=== PATIENT | female | born 1940 | race Caucasian/White ===

== ENCOUNTER 2018-05-25 16:39 | Emergency (ER) | payer MEDICARE, MEDICAID ==
[~2018-05-25] VITALS: Ht 154.9 cm; Wt 76.0 kg
[2018-05-25 21:10] LABS: HEMATOCRIT. 31.4 % (36.0-48.0); HEMOGLOBIN. 10.3 g/dL (12.0-16.0); MEAN CORPUSCULAR HEMOGLOBIN 27.6 pg (28.0-32.0); MEAN PLATELET VOLUME 7.7 fl (7.4-10.4); PLATELET 285 x1000/uL (130-400); RED BLOOD CELL COUNT 3.74 mill/uL (4.2-5.4); RED CELL DISTRIBUTION WIDTH 16.1 % (11.6-14.6)
[2018-05-25 21:15] LABS: CHLORIDE 105 mEq/L (98-107)
[2018-05-25 22:11] VITALS: BP 110/49
[2018-05-25 22:13] LABS: PLATELET ESTIMATE NORMAL
== END 2018-05-25 22:44 | disposition home or self-care (01) ==
LOC: ER 16:39
DX: R05 Cough (principal); J45.909 Unspecified asthma, uncomplicated; E11.9 Type 2 diabetes mellitus without complications; I10 Essential (primary) hypertension; E05.90 Thyrotoxicosis, unspecified without thyrotoxic crisis or storm; I25.2 Old myocardial infarction; Z95.0 Presence of cardiac pacemaker; Z88.0 Allergy status to penicillin; Z88.2 Allergy status to sulfonamides; Z98.890 Other specified postprocedural states
CPT/HCPCS: 36415; 71045; 80053; 82962; 85025; 87040; 99285

== ENCOUNTER 2018-11-03 15:20 | Emergency (ER) | payer MEDICARE, MEDICAID ==
[~2018-11-03] VITALS: Ht 157.5 cm; Wt 71.0 kg
[2018-11-03] MEDS ORDERED: ACETAMINOPHEN 325MG TABLET PO ONE (19:45)
[2018-11-03 21:20] VITALS: BP 107/53
== END 2018-11-03 21:22 | disposition home or self-care (01) ==
LOC: ER 15:50
DX: S93.692A Other sprain of left foot, initial encounter (principal); E11.9 Type 2 diabetes mellitus without complications; E78.00 Pure hypercholesterolemia, unspecified; I10 Essential (primary) hypertension; E03.9 Hypothyroidism, unspecified; W01.0XXA Fall on same level from slipping, tripping and stumbling without subsequent striking against object, initial encounter; Y93.89 Activity, other specified; Y92.89 Other specified places as the place of occurrence of the external cause; Y99.8 Other external cause status; Z95.0 Presence of cardiac pacemaker; Z98.890 Other specified postprocedural states; Z88.0 Allergy status to penicillin; Z88.2 Allergy status to sulfonamides
CPT/HCPCS: 73590; 73610; 73630; 99283

== ENCOUNTER → 2020-04-14 | Outpatient (CLI) | payer MEDICARE, MEDICAID | END | disposition home or self-care (01) | LOC: CT 11:54 | PROVIDERS: ATTEND Internal Medicine Rheumatology | DX: M43.16 Spondylolisthesis, lumbar region (principal); M47.816 Spondylosis without myelopathy or radiculopathy, lumbar region; M48.061 Spinal stenosis, lumbar region without neurogenic claudication; I70.90 Unspecified atherosclerosis; M25.78 Osteophyte, vertebrae | CPT/HCPCS: 72131 ==

== ENCOUNTER 2022-11-17 14:52 | Emergency (ER) | payer MEDICARE, MEDICAID ==
[~2022-11-17] VITALS: Ht 160 cm; Wt 50.0 kg
[2022-11-17] MEDS ORDERED: FAMOTIDINE 20MG/2ML VIAL IV ONE (15:45)
[2022-11-17] MEDS ORDERED: ONDANSETRON HCL 4MG/2ML INJ IV ONE (15:45)
[2022-11-17] MEDS ORDERED: SODIUM CHLORIDE 0.9% 1,000 ML IV ONE ×2 (15:45→18:15)
[2022-11-17] MEDS ORDERED: KETOROLAC 15MG/ML VIAL IV ONE (16:00)
[2022-11-17 16:05] LABS: HEMATOCRIT. 30.1 % (36.0-48.0); HEMOGLOBIN. 9.1 g/dL (12.0-16.0); MEAN CORPUSCULAR HEMOGLOBIN 23.7 pg (28.0-32.0); MEAN CORPUSCULAR VOLUME 78.2 fL (81.0-99.0); MEAN PLATELET VOLUME 8.2 fl (7.4-10.4); PLATELET 285 x1000/uL (130-400); RED BLOOD CELL COUNT 3.86 mill/uL (4.2-5.4); RED CELL DISTRIBUTION WIDTH 18.6 % (11.6-14.6)
[2022-11-17 16:09] LABS: INR 1.2
[2022-11-17 16:27] LABS: CHLORIDE 110 mEq/L (98-107)
[2022-11-17 16:31] LABS: CLARITY URINE CLEAR (CLEAR); COLOR URINE YELLOW (YELLOW); KETONES URINE NEGATIVE (NEGATIVE); LEUKOCYTE ESTERASE URINE TRACE (NEGATIVE); NITRITE URINE NEGATIVE (NEGATIVE); OCCULT BLOOD URINE NEGATIVE (NEGATIVE); PROTEIN URINE 1+ (NEGATIVE); SPECIFIC GRAVITY URINE 1.019 (1.005-1.030)
[2022-11-17 17:57] LABS: PLATELET ESTIMATE NORMAL
[2022-11-17 20:00] VITALS: BP 107/53
== END 2022-11-17 21:22 | disposition home or self-care (01) ==
LOC: ER 14:52
DX: K52.9 Noninfective gastroenteritis and colitis, unspecified (principal); E11.9 Type 2 diabetes mellitus without complications; E78.00 Pure hypercholesterolemia, unspecified; I10 Essential (primary) hypertension; Z95.0 Presence of cardiac pacemaker; Z88.0 Allergy status to penicillin
CPT/HCPCS: 36415; 74176; 80053; 81003; 83605; 83690; 84484; 85025; 85610; 96374; 96375; 99285; J1885; J2405; J3490; J7030

== ENCOUNTER 2023-09-03 16:39 | Emergency (ER) | payer MEDICARE, MEDICAID ==
[~2023-09-03] VITALS: Ht 160 cm; Wt 87.0 kg
[~2023-09-03 16:39] MED LIST: AMI2 PO; ATOR40TA70 PO; CARV6.2548 PO; CELL2 PO; ISOS30TA91 PO; LEVO100T9 PO; PANT40TA51 PO; PRED5TAB48 PO; RIVA20TA PO
[2023-09-03 16:48] VITALS: BP 145/62; PULSE 75; RESP 20; TEMP 98.8; O2SAT 96
[2023-09-03] MEDS ORDERED: ACETAMINOPHEN 325MG TABLET PO ONE (17:45)
[2023-09-03 18:49] LABS: ALANINE AMINOTRANSFERASE 31 IU/L (10-49); ALBUMIN 3.7 g/dL (3.2-4.8); ASPARTATE AMINOTRANSFERASE 43 IU/L (<34); BILIRUBIN TOTAL 0.9 mg/dL (0.1-1.0); CALCIUM 8.6 mg/dL (8.7-10.4); CARBON DIOXIDE 24 mEq/L (21-32); CHLORIDE 102 mEq/L (98-107); CREATININE 1.2 mg/dL (0.6-1.0); GLUCOSE 160 mg/dL (70-105); POTASSIUM 4.2 mEq/L (3.5-5.1); PROTEIN TOTAL 6.9 g/dL (6.0-8.3); SODIUM 135 mEq/L (136-145); UREA NITROGEN BLOOD 45 mg/dL (9-23)
[2023-09-03 19:15] LABS: BASOPHILS % 0.1 % (0.0-2.0); DIFFERENTIAL COMMENT 0; HEMATOCRIT. 29.1 % (36.0-48.0); LYMPHOCYTES % 7.1 % (20.0-50.0); MEAN CORPUSCULAR HEMOGLOBIN 24.9 pg (28.0-32.0); MEAN CORPUSCULAR VOLUME 80.4 fL (81.0-99.0); MEAN PLATELET VOLUME 7.3 fl (7.4-10.4); MONOCYTES % 8.4 % (2.0-8.0); NEUTROPHILS % 84.4 % (40.0-76.0); PLATELET 263 x1000/uL (130-400); RED BLOOD CELL COUNT 3.62 mill/uL (4.2-5.4); RED CELL DISTRIBUTION WIDTH 19.3 % (11.6-14.6); WHITE BLOOD COUNT 7.4 x1000/uL (4.5-11.0)
[2023-09-03] MEDS ORDERED: CLIN-116 MT (21:45)
[2023-09-03] MEDS ORDERED: CLIN-194 MT (21:45)
[2023-09-03] MEDS ORDERED: IOHEXOL-300 100 ML BOTTLE ONE (22:17)
== END 2023-09-03 22:34 | disposition home or self-care (01) ==
LOC: ER 16:39
DX: K11.20 Sialoadenitis, unspecified (principal); E11.9 Type 2 diabetes mellitus without complications; E78.00 Pure hypercholesterolemia, unspecified; I10 Essential (primary) hypertension; E03.9 Hypothyroidism, unspecified; Z79.899 Other long term (current) drug therapy
CPT/HCPCS: 99285; 70491; 80053; 85025; 36415; Q9967

== ENCOUNTER 2023-10-21 10:06 | Inpatient (IN) | payer MEDICARE, MEDICAID ==
[~2023-10-21] VITALS: Ht 134.6 cm; Wt 67.1 kg
[~2023-10-21 10:06] MED LIST changes: -CELL2 PO; +CHOL50003 PO; +CLIN-194 MT; +FURO40TA5 PO; +INSU100I22 SUBCUT; -ISOS30TA91 PO; +ISOS60TA76 PO; +ONDA4TAB50 PO; -PRED5TAB48 PO; +TRAZ-251 PO
[2023-10-21 10:58] LABS: BASOPHILS % 0.2 % (0.0-2.0); DIFFERENTIAL COMMENT 0; EOSINOPHILS % 0.1 % (0.0-5.0); HEMATOCRIT. 28.1 % (36.0-48.0); HEMOGLOBIN. 8.7 g/dL (12.0-16.0); LYMPHOCYTES % 14.8 % (20.0-50.0); MEAN CORPUSCULAR HEMOGLOBIN 26.5 pg (28.0-32.0); MEAN CORPUSCULAR HGB CONC 30.8 g/dL (31.0-37.0); MEAN PLATELET VOLUME 7.2 fl (7.4-10.4); MONOCYTES % 13.3 % (2.0-8.0); NEUTROPHILS % 71.6 % (40.0-76.0); PLATELET 243 x1000/uL (130-400); RED BLOOD CELL COUNT 3.27 mill/uL (4.2-5.4); RED CELL DISTRIBUTION WIDTH 19.3 % (11.6-14.6)
[2023-10-21 11:15] LABS: ALANINE AMINOTRANSFERASE 10 IU/L (10-49); ALBUMIN 3.8 g/dL (3.2-4.8); ASPARTATE AMINOTRANSFERASE 23 IU/L (<34); BILIRUBIN TOTAL 1.4 mg/dL (0.1-1.0); CALCIUM 8.3 mg/dL (8.7-10.4); CARBON DIOXIDE 19 mEq/L (21-32); CHLORIDE 109 mEq/L (98-107); CREATININE 1.8 mg/dL (0.6-1.0); GLUCOSE 124 mg/dL (70-105); POTASSIUM 4.2 mEq/L (3.5-5.1); SODIUM 136 mEq/L (136-145); TROPONIN I HIGH SENSITIVITY 13 ng/L (3.0-34); UREA NITROGEN BLOOD 45 mg/dL (9-23)
[2023-10-21 13:06] LABS: TROPONIN I HIGH SENSITIVITY 16 ng/L (3.0-34)
[2023-10-21] MEDS: LEVOFLOXACIN 500MG PREMIX 100 ML IV ONE (13:11)
[2023-10-21 13:33] LABS: BG CARBOXYHEMOGLOBIN 0.4 % (0.5-1.5); BG DEOXYHEMOGLOBIN 6.5 % (0.0-5.0); BG HCO3 ACT 18.7 mmol/L (22.0-26.0); BG METHEMOGLOBIN 0.5 % (0.0-1.5); BG OXYGEN SATURATION 93.4 % (92.0-98.5); BG OXYHEMOGLOBIN 92.6 % (94.0-97.0); BG PCO2 33.7 mmHg (35.0-45.0); BG PH 7.361 (7.350-7.450); BG PO2 71.9 mmHg (75.0-100.0); BG SAMPLE SITE RIGHT BRACHIAL; BG TOTAL HEMOGLOBIN 10.1 g/dL (12.0-18.0); BG VENT MODE MASK - NRB
[2023-10-21] MEDS ORDERED: IPRATROPIUM/ALBUTEROL 0.5-3(2.5)MG/3ML NEB HHN PRN (14:15)
[2023-10-21] MEDS ORDERED: CLONIDINE 0.1MG TABLET PO PRN (14:15)
[2023-10-21] MEDS ORDERED: AZITHROMYCIN 500 MG in DEXT 5% WATER 250 ML IV SCH (14:15)
[2023-10-21] MEDS ORDERED: DEXTROSE 50% WATER 50ML SYRINGE IV PRN (14:45)
[2023-10-21 15:12] VITALS: BP 150/61; PULSE 60; RESP 20; TEMP 97.5
[2023-10-21 16:00] VITALS: BP_SYST 150; BP_SYST 155; BP_DIAS 56; BP_DIAS 61; PULSE 60; PULSE 66; RESP 19; RESP 20; TEMP 97.5; TEMP 97.6
[2023-10-21] MEDS: ACETAMINOPHEN 500MG TABLET PO NR (16:15)
[2023-10-21] MEDS: RIVAROXABAN 15 MG TABLET PO SCH (16:15)
[2023-10-21] MEDS: METHYLPREDNISOLONE SOD SUCC 40MG/ML (ACT-O-VIAL) IV SCH (16:16)
[2023-10-21] MEDS: AZITHROMYCIN 500MG/250ML IV SCH (16:16)
[2023-10-21 17:16] LABS: IRON 24 ug/dL (50-170); TOTAL IRON BINDING CAPACITY 349 ug/dl (250-425)
[2023-10-21] MEDS: CYCLOSPORINE, MODIFIED 25MG CAPSULE PO SCH (18:00)
[2023-10-21] MEDS: INSULIN LISPRO 100 UNITS/ML SUBCUT SCH (18:00)
[2023-10-21] MEDS: BLOOD SUGAR DIAGNOSTIC STRIP TEST SCH (18:00)
[2023-10-21 20:00] VITALS: BP 122/48; PULSE 62; RESP 19; TEMP 97.4
[2023-10-21 20:30] VITALS: RESP 18
[2023-10-21 20:45] LABS: FOLIC ACID (FOLATE) SERUM > 20.00 ng/mL (>5.38); VITAMIN B12 SERUM 382 pg/mL (211-911)
[2023-10-21] MEDS: MYCOPHENOLATE MOFETIL 250MG CAPSULE PO SCH (21:06)
[2023-10-21 21:56] VITALS: PULSE 60; RESP 18; O2SAT 100
[2023-10-21] MEDS: IPRATROPIUM/ALBUTEROL 0.5-3(2.5)MG/3ML NEB HHN SCH (21:56)
[2023-10-22] VITALS (10 sets, daily range): BP systolic 114–134; BP diastolic 39–63; PULSE 59–98; RESP 16–20; TEMP 97.3–99.7; O2SAT 97–100
[2023-10-22 00:27] LABS: CREATINE KINASE MB FRACTION 1.2 ng/mL (0.5-3.6)
[2023-10-22 06:47] LABS: HEMATOCRIT. 24.2 % (36.0-48.0); HEMOGLOBIN. 7.8 g/dL (12.0-16.0); MEAN CORPUSCULAR HGB CONC 32.2 g/dL (31.0-37.0); MEAN PLATELET VOLUME 7.8 fl (7.4-10.4); PLATELET 168 x1000/uL (130-400); RED BLOOD CELL COUNT 2.88 mill/uL (4.2-5.4); RED CELL DISTRIBUTION WIDTH 18.3 % (11.6-14.6); WHITE BLOOD COUNT 4.5 x1000/uL (4.5-11.0)
[2023-10-22 06:59] LABS: CREATINE KINASE MB FRACTION 0.9 ng/mL (0.5-3.6)
[2023-10-22 07:02] LABS: DIFFERENTIAL COMMENT 1
[2023-10-22] MEDS: FUROSEMIDE 40MG/4ML VIAL IV SCH (08:29)
[2023-10-22] MEDS: PANTOPRAZOLE SODIUM 40 MG/VIAL IV SCH (08:29)
[2023-10-22] MEDS: AMIODARONE HCL 200 MG TABLET PO SCH (08:30)
[2023-10-22] MEDS: ASPIRIN 81MG EC TABLET PO SCH (08:30)
[2023-10-22 11:52] LABS: CHLORIDE 107 mEq/L (98-107); POTASSIUM 4.5 mEq/L (3.5-5.1); SODIUM 134 mEq/L (136-145)
[2023-10-22 11:53] LABS: CARBON DIOXIDE 18 mEq/L (21-32); GLUCOSE 192 mg/dL (70-105)
[2023-10-22 11:56] LABS: CALCIUM 8.2 mg/dL (8.7-10.4); CREATININE 1.9 mg/dL (0.6-1.0); PROTEIN TOTAL 6.5 g/dL (6.0-8.3); UREA NITROGEN BLOOD 49 mg/dL (9-23)
[2023-10-22 11:57] LABS: ALANINE AMINOTRANSFERASE 8 IU/L (10-49); ALBUMIN 3.5 g/dL (3.2-4.8); ASPARTATE AMINOTRANSFERASE 17 IU/L (<34); BILIRUBIN TOTAL 1.3 mg/dL (0.1-1.0)
[2023-10-22 11:58] LABS: CHOLESTEROL 95 mg/dL (<200); HDL CHOLESTEROL 22 mg/dL (>65); LDL CHOLESTEROL 51 mg/dL (5-100); THYROID STIMULATING HORMONE 0.08 uIU/mL (0.55-4.78); TRIGLYCERIDE 94 mg/dL (0-150)
[2023-10-22] MEDS: MEROPENEM 500MG/50ML IV SCH (12:00)
[2023-10-22 13:20] LABS: ANISOCYTOSIS 1+; PLATELET ESTIMATE NORMAL
[2023-10-22] MEDS ORDERED: MEROPENEM 1G/100ML 100 ML IV SCH (14:00)
[2023-10-22] MEDS: VANCOMYCIN 1G PREMIX 200 ML IV NR (14:07)
[2023-10-22] MEDS: INSULIN LISPRO 100 UNITS/ML SUBCUT SCH (17:17)
[2023-10-22] MEDS: INSULIN GLARGINE 100 UNITS/ML SUBCUT SCH (21:31)
[2023-10-23] VITALS (10 sets, daily range): BP systolic 114–140; BP diastolic 47–68; PULSE 83–107; RESP 14–20; TEMP 97.2–98.6; O2SAT 98
[2023-10-23 07:34] LABS: HEMATOCRIT 24.1 % (36.0-48.0); HEMOGLOBIN 7.8 g/dL (12.0-16.0); MEAN CORPUSCULAR HEMOGLOBIN 26.9 pg (28.0-32.0); MEAN CORPUSCULAR HGB CONC 32.5 g/dL (31.0-37.0); MEAN CORPUSCULAR VOLUME 82.8 fL (81.0-99.0); PLATELET 174 x1000/uL (130-400); RED BLOOD CELL COUNT 2.91 mill/uL (4.2-5.4); RED CELL DISTRIBUTION WIDTH 19.3 % (11.6-14.6); WHITE BLOOD COUNT 5.1 x1000/uL (4.5-11.0)
[2023-10-23 07:57] LABS: CALCIUM 8.5 mg/dL (8.7-10.4); CREATININE 1.8 mg/dL (0.6-1.0); POTASSIUM 4.1 mEq/L (3.5-5.1)
[2023-10-23] MEDS: LEVOTHYROXINE SODIUM 100MCG TABLET PO SCH (08:18)
[2023-10-23] MEDS: FERROUS SULFATE 325MG TABLET PO SCH (18:01)
[2023-10-23] MEDS: INSULIN LISPRO 100 UNITS/ML SUBCUT SCH (18:06)
[2023-10-23] MEDS: ACETAMINOPHEN 325MG TABLET PO PRN (18:39)
[2023-10-23] MEDS: VANCOMYCIN 1G PREMIX 200 ML IV SCH (18:40)
[2023-10-23] MEDS: INSULIN GLARGINE 100 UNITS/ML SUBCUT SCH (21:17)
[2023-10-23 23:07] LABS: CLARITY URINE CLEAR (CLEAR); COLOR URINE YELLOW (YELLOW); GLUCOSE URINE NEGATIVE (NEGATIVE); KETONES URINE 1+ (NEGATIVE); LEUKOCYTE ESTERASE URINE NEGATIVE (NEGATIVE); NITRITE URINE NEGATIVE (NEGATIVE); OCCULT BLOOD URINE NEGATIVE (NEGATIVE); PH URINE 6.5 (4.5-8.0); PROTEIN URINE 1+ (NEGATIVE); SPECIFIC GRAVITY URINE 1.012 (1.005-1.030); UROBILINOGEN URINE 0.2 E.U./dL (0.2-1.0)
[2023-10-23 23:20] LABS: BACTERIA URINE 4+; RBC URINE 0-2 /hpf (0-2); SQUAMOUS EPITHELIAL CELL URINE RARE /lpf (RARE/1+); WBC URINE 0-2 /hpf (0-2)
[2023-10-24] VITALS (9 sets, daily range): BP systolic 114–136; BP diastolic 49–78; PULSE 71–99; RESP 16–20; TEMP 97–98.1; O2SAT 96–98
[2023-10-24 06:35] LABS: HEMATOCRIT. 24.8 % (36.0-48.0); MEAN CORPUSCULAR HGB CONC 32.2 g/dL (31.0-37.0); MEAN CORPUSCULAR VOLUME 83.8 fL (81.0-99.0); PLATELET 201 x1000/uL (130-400); RED BLOOD CELL COUNT 2.96 mill/uL (4.2-5.4); RED CELL DISTRIBUTION WIDTH 19.6 % (11.6-14.6); WHITE BLOOD COUNT 9.1 x1000/uL (4.5-11.0)
[2023-10-24 06:53] LABS: DIFFERENTIAL COMMENT 1
[2023-10-24 07:06] LABS: CALCIUM 8.4 mg/dL (8.7-10.4); CREATININE 1.7 mg/dL (0.6-1.0)
[2023-10-24] MEDS: METHYLPREDNISOLONE SOD SUCC 40MG/ML (ACT-O-VIAL) IV SCH (08:40)
[2023-10-24] MEDS: METOLAZONE 2.5MG TABLET PO SCH (10:17)
[2023-10-24] MEDS: CITRIC ACID/SODIUM CITRATE SOLN 15ML UDC PO SCH (10:17)
[2023-10-24] MEDS: PREDNISONE 10MG TABLET PO SCH (10:17)
[2023-10-24] MEDS ORDERED: VANCOMYCIN 750MG PREMIX 150 ML IV SCH (12:00)
[2023-10-24 13:59] LABS: ANISOCYTOSIS 1+; PLATELET ESTIMATE NORMAL
[2023-10-24] MEDS ORDERED: CARVEDILOL 6.25 MG TABLET PO SCH (14:30)
[2023-10-24] MEDS: METOPROLOL TARTRATE 50MG TABLET PO SCH (15:18)
[2023-10-25] VITALS (8 sets, daily range): BP systolic 125–132; BP diastolic 53–71; PULSE 57–78; RESP 18–20; TEMP 97–97.9; O2SAT 96–100
[2023-10-25 06:25] LABS: HEMATOCRIT 25.2 % (36.0-48.0); HEMOGLOBIN 7.9 g/dL (12.0-16.0); MEAN CORPUSCULAR HEMOGLOBIN 26.2 pg (28.0-32.0); MEAN CORPUSCULAR HGB CONC 31.4 g/dL (31.0-37.0); MEAN CORPUSCULAR VOLUME 83.5 fL (81.0-99.0); PLATELET 212 x1000/uL (130-400); RED BLOOD CELL COUNT 3.01 mill/uL (4.2-5.4); RED CELL DISTRIBUTION WIDTH 19.2 % (11.6-14.6); WHITE BLOOD COUNT 6.8 x1000/uL (4.5-11.0)
[2023-10-25 06:28] LABS: CALCIUM 8.1 mg/dL (8.7-10.4); CREATININE 1.4 mg/dL (0.6-1.0)
[2023-10-25] MEDS ORDERED: FERR-63 PO (10:20)
[2023-10-25] MEDS ORDERED: NEOR25 PO (10:20)
[2023-10-25] MEDS ORDERED: PRED10TA PO (10:20)
[2023-10-25] MEDS ORDERED: METO-539 PO (10:20)
[2023-10-25] MEDS ORDERED: CITR473S PO (10:20)
[2023-10-25] MEDS ORDERED: INSU100I28 SQ (10:20)
[2023-10-25] MEDS ORDERED: CELL2 PO (10:20)
[2023-10-31 15:20] LABS: CYCLOSPORINE 82 LOW
== END 2023-10-25 16:40 | disposition home or self-care (01) | DRG 193 ==
LOC: ER 10:13 → 7WST 14:17
PROVIDERS: ADMIT Internal Medicine; ATTEND Internal Medicine
DX: J18.9 Pneumonia, unspecified organism (principal); G92.8 Other toxic encephalopathy; I50.33 Acute on chronic diastolic (congestive) heart failure; J96.01 Acute respiratory failure with hypoxia; I13.0 Hypertensive heart and chronic kidney disease with heart failure and stage 1 through stage 4 chronic kidney disease, or unspecified chronic kidney disease; N17.9 Acute kidney failure, unspecified; Z20.822 Contact with and (suspected) exposure to COVID-19; I49.5 Sick sinus syndrome; I25.10 Atherosclerotic heart disease of native coronary artery without angina pectoris; E11.22 Type 2 diabetes mellitus with diabetic chronic kidney disease; D50.9 Iron deficiency anemia, unspecified; N18.30 Chronic kidney disease, stage 3 unspecified; I27.21 Secondary pulmonary arterial hypertension; I48.0 Paroxysmal atrial fibrillation; E03.9 Hypothyroidism, unspecified; G89.29 Other chronic pain; J45.909 Unspecified asthma, uncomplicated; Z79.01 Long term (current) use of anticoagulants; Z79.4 Long term (current) use of insulin; Z79.82 Long term (current) use of aspirin; Z79.899 Other long term (current) drug therapy; Z82.49 Family history of ischemic heart disease and other diseases of the circulatory system; Z88.0 Allergy status to penicillin; Z88.2 Allergy status to sulfonamides; Z95.0 Presence of cardiac pacemaker; Z95.5 Presence of coronary angioplasty implant and graft
CPT/HCPCS: 36415; 36600; 71045; 74176; 80048; 80053; 80061; 80158; 80202; 81003; 82375; 82550; 82553; 82607; 82728; 82746; 82805; 82962; 83036; 83540; 83550; 83605; 83735; 83880; 84145; 84443; 84481; 84484; 85025; 85027; 85379; 86644; 87426; 93005; 93306; 93970; 94640; 97110; 97162; 97166; 97530; 99291; C1893; C9113; J0456; J1815; J1940; J1956; J2185; J2920; J3370; J7512; J7515; J7517

== ENCOUNTER 2023-12-02 12:36 | Inpatient (IN) | payer MEDICARE, MEDICAID ==
[~2023-12-02] VITALS: Ht 165.1 cm; Wt 63.0 kg
[~2023-12-02 12:36] MED LIST changes: +CELL2 PO; +CITR473S PO; -CLIN-194 MT; +FERR-63 PO; +INSU100I28 SQ; +NEOR25 PO; +PRED10TA PO; -TRAZ-251 PO
[2023-12-02] MEDS: NITROGLYCERIN OINT 1GM/INCH UDPKT TD ONE (13:39)
[2023-12-02] MEDS: FUROSEMIDE 40MG/4ML VIAL IV ONE (13:39)
[2023-12-02] MEDS: ASPIRIN 81MG TABLET PO ONE (13:39)
[2023-12-02 14:15] LABS: BASOPHILS % 0.2 % (0.0-2.0); HEMATOCRIT. 31.4 % (36.0-48.0); HEMOGLOBIN. 9.8 g/dL (12.0-16.0); LYMPHOCYTES % 13.1 % (20.0-50.0); MEAN CORPUSCULAR HEMOGLOBIN 26.9 pg (28.0-32.0); MEAN CORPUSCULAR HGB CONC 31.4 g/dL (31.0-37.0); MEAN CORPUSCULAR VOLUME 85.7 fL (81.0-99.0); MEAN PLATELET VOLUME 7.6 fl (7.4-10.4); MONOCYTES % 10.3 % (2.0-8.0); NEUTROPHILS % 76.4 % (40.0-76.0); PLATELET 235 x1000/uL (130-400); RED BLOOD CELL COUNT 3.66 mill/uL (4.2-5.4); RED CELL DISTRIBUTION WIDTH 18.9 % (11.6-14.6); WHITE BLOOD COUNT 7.2 x1000/uL (4.5-11.0)
[2023-12-02 14:31] LABS: INR 1.2; PARTIAL THROMBOPLASTIN TIME 35.6 sec (23.4-31.0); PROTHROMBIN TIME 13.3 sec (9.6-11.0)
[2023-12-02 14:32] LABS: ALANINE AMINOTRANSFERASE 26 IU/L (10-49); ASPARTATE AMINOTRANSFERASE 39 IU/L (<34); BILIRUBIN TOTAL 1.1 mg/dL (0.1-1.0); CALCIUM 8.7 mg/dL (8.7-10.4); CARBON DIOXIDE 19 mEq/L (21-32); CHLORIDE 111 mEq/L (98-107); CREATININE 1.3 mg/dL (0.6-1.0); GLUCOSE 174 mg/dL (70-105); PROTEIN TOTAL 7.2 g/dL (6.0-8.3); SODIUM 136 mEq/L (136-145); TROPONIN I HIGH SENSITIVITY 26 ng/L (3.0-34); UREA NITROGEN BLOOD 28 mg/dL (9-23)
[2023-12-02 17:54] LABS: TROPONIN I HIGH SENSITIVITY 22 ng/L (3.0-34)
[2023-12-03 11:31] VITALS: BP 121/64; PULSE 77; RESP 18; TEMP 97.7
[2023-12-03 12:00] VITALS: BP 121/64; PULSE 77; RESP 18; TEMP 97.7
[2023-12-03] MEDS: FUROSEMIDE 100MG/10ML VIAL IVP SCH (14:14)
[2023-12-03] MEDS: ONDANSETRON HCL 4MG/2ML INJ IV PRN (14:15)
[2023-12-03] MEDS: ACETAMINOPHEN 325MG TABLET PO PRN (14:15)
[2023-12-03 16:00] VITALS: BP 119/66; PULSE 70; RESP 18; TEMP 97.1
[2023-12-03 20:00] VITALS: BP 115/46; PULSE 69; RESP 21; TEMP 97.2
[2023-12-03] MEDS ORDERED: IPRATROPIUM/ALBUTEROL 0.5-3(2.5)MG/3ML NEB HHN PRN (20:15)
[2023-12-03] MEDS ORDERED: DEXTROSE 50% WATER 50ML SYRINGE IV PRN (22:00)
[2023-12-03] MEDS: IPRATROPIUM/ALBUTEROL 0.5-3(2.5)MG/3ML NEB HHN SCH (22:18)
[2023-12-03 22:20] VITALS: PULSE 69; RESP 20; O2SAT 92
[2023-12-04] VITALS (8 sets, daily range): BP systolic 96–136; BP diastolic 36–55; PULSE 67–85; RESP 18–20; TEMP 97.1–98.8; O2SAT 96
[2023-12-04] MEDS: PANTOPRAZOLE 40MG DR TABLET PO SCH (06:27)
[2023-12-04] MEDS: LEVOTHYROXINE SODIUM 100MCG TABLET PO SCH (06:27)
[2023-12-04] MEDS: BLOOD SUGAR DIAGNOSTIC STRIP TEST SCH (06:27)
[2023-12-04] MEDS: INSULIN LISPRO 100 UNITS/ML SUBCUT SCH (06:28)
[2023-12-04] MEDS: MYCOPHENOLATE MOFETIL 250MG CAPSULE PO SCH (09:32)
[2023-12-04] MEDS: AMIODARONE HCL 200 MG TABLET PO SCH (09:32)
[2023-12-04] MEDS: PREDNISONE 10MG TABLET PO SCH (09:32)
[2023-12-04] MEDS: RIVAROXABAN 20 MG TABLET PO SCH (17:46)
[2023-12-04] MEDS: MONTELUKAST SODIUM 10MG TABLET PO SCH (17:47)
[2023-12-04] MEDS ORDERED: AMLODIPINE 10MG TABLET PO SCH (18:00)
[2023-12-04 21:45] LABS: CALCIUM 8.2 mg/dL (8.7-10.4); CREATININE 1.6 mg/dL (0.6-1.0)
[2023-12-04] MEDS: ATORVASTATIN CALCIUM 40MG TABLET PO SCH (21:55)
[2023-12-05] VITALS (8 sets, daily range): BP systolic 117–130; BP diastolic 45–55; PULSE 68–72; RESP 18–20; TEMP 97.6–98.1; O2SAT 96–97
[2023-12-05] MEDS: RIVAROXABAN 15 MG TABLET PO SCH (17:08)
== END 2023-12-05 20:05 | disposition home health service (06) | DRG 291 ==
LOC: ER 12:52 → EDBEDREQTM 16:12 → EDBEDREQ 16:12 → 5WST 22:52 → 8WST 12-03 08:34
PROVIDERS: ADMIT Internal Medicine; ATTEND Internal Medicine
DX: I13.0 Hypertensive heart and chronic kidney disease with heart failure and stage 1 through stage 4 chronic kidney disease, or unspecified chronic kidney disease (principal); I50.33 Acute on chronic diastolic (congestive) heart failure; J96.21 Acute and chronic respiratory failure with hypoxia; D84.9 Immunodeficiency, unspecified; Z94.0 Kidney transplant status; I48.20 Chronic atrial fibrillation, unspecified; I49.5 Sick sinus syndrome; I27.21 Secondary pulmonary arterial hypertension; E11.22 Type 2 diabetes mellitus with diabetic chronic kidney disease; J45.909 Unspecified asthma, uncomplicated; E11.65 Type 2 diabetes mellitus with hyperglycemia; D64.9 Anemia, unspecified; I25.10 Atherosclerotic heart disease of native coronary artery without angina pectoris; N18.9 Chronic kidney disease, unspecified; Z95.1 Presence of aortocoronary bypass graft; Z88.0 Allergy status to penicillin; Z98.61 Coronary angioplasty status; Z95.0 Presence of cardiac pacemaker; Z88.2 Allergy status to sulfonamides
CPT/HCPCS: 36415; 71045; 76604; 80048; 80053; 82962; 83036; 83880; 84145; 84484; 85025; 93005; 93970; 94640; 97161; 99285; J1815; J1940; J2405; J7512; J7517

== ENCOUNTER 2024-02-11 15:47 | Inpatient (IN) | payer MEDICARE, MEDICAID ==
[~2024-02-11] VITALS: Ht 152.4 cm; Wt 64.9 kg
[~2024-02-11 15:47] MED LIST changes: +ALBU6.7H15 INH; -INSU100I22 SUBCUT; -INSU100I28 SQ; +MOME13HF12 INH; +MONT-46 PO; +NITR-87 PO; +OMEP20TA15 MT
[2024-02-11 16:51] LABS: BASOPHILS % 0.1 % (0.0-2.0); EOSINOPHILS % 0.1 % (0.0-5.0); HEMATOCRIT. 26.4 % (36.0-48.0); HEMOGLOBIN. 8.4 g/dL (12.0-16.0); LYMPHOCYTES % 9.9 % (20.0-50.0); MEAN CORPUSCULAR HEMOGLOBIN 27.6 pg (28.0-32.0); MEAN CORPUSCULAR HGB CONC 31.9 g/dL (31.0-37.0); MEAN CORPUSCULAR VOLUME 86.6 fL (81.0-99.0); MEAN PLATELET VOLUME 7.2 fl (7.4-10.4); MONOCYTES % 13.8 % (2.0-8.0); NEUTROPHILS % 76.1 % (40.0-76.0); PLATELET 223 x1000/uL (130-400); RED BLOOD CELL COUNT 3.05 mill/uL (4.2-5.4); RED CELL DISTRIBUTION WIDTH 20.4 % (11.6-14.6); WHITE BLOOD COUNT 5.3 x1000/uL (4.5-11.0)
[2024-02-11] MEDS: METHYLPREDNISOLONE SOD SUCC 125MG/2ML (ACT-O-VIAL) IV STA (16:53)
[2024-02-11 17:18] LABS: CHLORIDE 107 mEq/L (98-107); POTASSIUM 4.7 mEq/L (3.5-5.1); SODIUM 137 mEq/L (136-145)
[2024-02-11 17:19] LABS: CALCIUM 8.5 mg/dL (8.7-10.4); CARBON DIOXIDE 20 mEq/L (21-32)
[2024-02-11 17:24] LABS: CREATININE 1.5 mg/dL (0.6-1.0); GLUCOSE 175 mg/dL (70-105); UREA NITROGEN BLOOD 39 mg/dL (9-23)
[2024-02-11 17:26] LABS: TROPONIN I HIGH SENSITIVITY 14 ng/L (3.0-34)
[2024-02-11] MEDS ORDERED: FUROSEMIDE 40MG/4ML VIAL IVP ONE (18:00)
[2024-02-11] MEDS ORDERED: INSU100I22 SUBCUT (19:29)
[2024-02-11] MEDS ORDERED: ONDANSETRON HCL 4MG/2ML INJ IV PRN (19:30)
[2024-02-11] MEDS ORDERED: ACETAMINOPHEN 325MG TABLET PO PRN (19:30)
[2024-02-11] MEDS ORDERED: DOCUSATE SODIUM 100MG CAPSULE PO PRN (19:30)
[2024-02-11] MEDS ORDERED: MAGNESIUM/ALUMINUM HYDROXIDE/SIMETHICONE 30ML UDC PO PRN (19:30)
[2024-02-11] MEDS ORDERED: CLONIDINE 0.1MG TABLET PO PRN (19:30)
[2024-02-11 20:18] LABS: D-DIMER 1.17 mg/L FEU (<0.50); INR 1.4; PROTHROMBIN TIME 14.8 sec (9.6-11.0)
[2024-02-11 20:28] LABS: URIC ACID 7.7 mg/dL (3.1-7.8)
[2024-02-11 20:34] LABS: T4 FREE 1.44 ng/dL (0.89-1.76)
[2024-02-11 20:35] LABS: THYROID STIMULATING HORMONE 1.61 uIU/mL (0.55-4.78)
[2024-02-11 20:50] VITALS: PULSE 60; RESP 18; O2SAT 100
[2024-02-11] MEDS: IPRATROPIUM/ALBUTEROL 0.5-3(2.5)MG/3ML NEB HHN PRN (20:50)
[2024-02-11] MEDS: IPRATROPIUM/ALBUTEROL 0.5-3(2.5)MG/3ML NEB HHN ONE (20:50)
[2024-02-11] MEDS: FUROSEMIDE 40MG/4ML VIAL IVP NR (21:16)
[2024-02-11] MEDS: ALBUTEROL (0.083%) 2.5MG/3ML NEB HHN ONE (21:19)
[2024-02-11] MEDS: ATORVASTATIN CALCIUM 40MG TABLET PO SCH (22:25)
[2024-02-11] MEDS: MYCOPHENOLATE MOFETIL 250MG CAPSULE PO SCH (22:25)
[2024-02-12 01:03] LABS: TROPONIN I HIGH SENSITIVITY 12 ng/L (3.0-34)
[2024-02-12 01:05] LABS: CREATINE KINASE 21 IU/L (34-145)
[2024-02-12 01:45] VITALS: BP 140/46; PULSE 59; RESP 20; TEMP 97.7
[2024-02-12 04:00] VITALS: BP 144/58; PULSE 60; RESP 18; TEMP 98.8
[2024-02-12 06:33] LABS: CHLORIDE 108 mEq/L (98-107); HEMATOCRIT. 26.8 % (36.0-48.0); HEMOGLOBIN. 8.4 g/dL (12.0-16.0); MEAN CORPUSCULAR HEMOGLOBIN 27.3 pg (28.0-32.0); MEAN CORPUSCULAR HGB CONC 31.4 g/dL (31.0-37.0); MEAN CORPUSCULAR VOLUME 87.1 fL (81.0-99.0); MEAN PLATELET VOLUME 6.9 fl (7.4-10.4); PLATELET 183 x1000/uL (130-400); POTASSIUM 4.9 mEq/L (3.5-5.1); RED BLOOD CELL COUNT 3.08 mill/uL (4.2-5.4); RED CELL DISTRIBUTION WIDTH 20.3 % (11.6-14.6); SODIUM 138 mEq/L (136-145); WHITE BLOOD COUNT 3.2 x1000/uL (4.5-11.0)
[2024-02-12 06:34] LABS: CALCIUM 8.5 mg/dL (8.7-10.4); CARBON DIOXIDE 18 mEq/L (21-32)
[2024-02-12 06:39] LABS: CREATININE 1.5 mg/dL (0.6-1.0); GLUCOSE 198 mg/dL (70-105); TROPONIN I HIGH SENSITIVITY 12 ng/L (3.0-34); UREA NITROGEN BLOOD 40 mg/dL (9-23)
[2024-02-12 06:41] LABS: ALANINE AMINOTRANSFERASE 23 IU/L (10-49); ALBUMIN 3.4 g/dL (3.2-4.8); ASPARTATE AMINOTRANSFERASE 26 IU/L (<34); BILIRUBIN DIRECT 0.5 mg/dL (<=3.0); PHOSPHORUS 4.5 mg/dL (2.5-4.9)
[2024-02-12 06:42] LABS: CREATINE KINASE 24 IU/L (34-145); PROTEIN TOTAL 6.5 g/dL (6.0-8.3)
[2024-02-12 07:50] LABS: DIFFERENTIAL COMMENT 1
[2024-02-12 08:00] VITALS: BP 132/51; PULSE 60; RESP 18; TEMP 99
[2024-02-12] MEDS: LEVOTHYROXINE SODIUM 100MCG TABLET PO SCH (08:04)
[2024-02-12] MEDS: ACETAMINOPHEN 325MG TABLET PO PRN (08:05)
[2024-02-12] MEDS: PANTOPRAZOLE 40MG DR TABLET PO SCH (08:05)
[2024-02-12] MEDS: FERROUS SULFATE 325MG TABLET PO SCH (08:05)
[2024-02-12] MEDS: AMIODARONE HCL 200 MG TABLET PO SCH (09:27)
[2024-02-12] MEDS: FUROSEMIDE 40MG/4ML VIAL IVP SCH ×2 (09:27→16:31)
[2024-02-12] MEDS ORDERED: DEXTROSE 50% WATER 50ML SYRINGE IV PRN (10:15)
[2024-02-12] MEDS: CYCLOSPORINE, MODIFIED 25MG CAPSULE PO SCH (10:55)
[2024-02-12] MEDS: PREDNISONE 10MG TABLET PO SCH (11:26)
[2024-02-12] MEDS: BLOOD SUGAR DIAGNOSTIC STRIP TEST SCH (11:32)
[2024-02-12 12:00] VITALS: BP 122/46; PULSE 60; RESP 18; TEMP 97
[2024-02-12] MEDS: INSULIN LISPRO 100 UNITS/ML SUBCUT SCH (12:45)
[2024-02-12 14:24] LABS: ANISOCYTOSIS 2+; PLATELET ESTIMATE NORMAL
[2024-02-12 16:00] VITALS: BP 120/75; PULSE 65; RESP 18; TEMP 97.8
[2024-02-12] MEDS: RIVAROXABAN 15 MG TABLET PO SCH (16:31)
[2024-02-12] MEDS ORDERED: RIVAROXABAN 20 MG TABLET PO SCH (17:00)
[2024-02-12 20:00] VITALS: BP 130/52; PULSE 77; RESP 18; TEMP 97.9
[2024-02-13] VITALS (7 sets, daily range): BP systolic 118–146; BP diastolic 50–80; PULSE 60–80; RESP 18–20; TEMP 97.6–98; O2SAT 99
[2024-02-13] MEDS ORDERED: IPRATROPIUM/ALBUTEROL 0.5-3(2.5)MG/3ML NEB HHN SCH
[2024-02-13 06:39] LABS: CALCIUM 8.9 mg/dL (8.7-10.4); CARBON DIOXIDE 22 mEq/L (21-32); CHLORIDE 106 mEq/L (98-107); POTASSIUM 4.3 mEq/L (3.5-5.1); SODIUM 139 mEq/L (136-145)
[2024-02-13 06:44] LABS: CREATININE 1.5 mg/dL (0.6-1.0); GLUCOSE 174 mg/dL (70-105)
[2024-02-13 06:45] LABS: UREA NITROGEN BLOOD 45 mg/dL (9-23)
[2024-02-13 06:46] LABS: PHOSPHORUS 3.9 mg/dL (2.5-4.9)
[2024-02-13 06:49] LABS: HEMATOCRIT. 23.6 % (36.0-48.0); HEMOGLOBIN. 7.4 g/dL (12.0-16.0); LYMPHOCYTES % 8.1 % (20.0-50.0); MEAN CORPUSCULAR HEMOGLOBIN 27.7 pg (28.0-32.0); MEAN CORPUSCULAR HGB CONC 31.5 g/dL (31.0-37.0); MEAN CORPUSCULAR VOLUME 87.9 fL (81.0-99.0); MEAN PLATELET VOLUME 7.6 fl (7.4-10.4); MONOCYTES % 8.5 % (2.0-8.0); NEUTROPHILS % 83.4 % (40.0-76.0); PLATELET 173 x1000/uL (130-400); RED BLOOD CELL COUNT 2.69 mill/uL (4.2-5.4); RED CELL DISTRIBUTION WIDTH 20.3 % (11.6-14.6); WHITE BLOOD COUNT 5.5 x1000/uL (4.5-11.0)
[2024-02-13] MEDS: MECLIZINE 25MG TABLET PO NR (18:18)
== END 2024-02-13 20:07 | disposition home or self-care (01) | DRG 291 ==
LOC: ER 15:47 → 7WST 18:27 → EDBEDREQTM 18:38 → EDBEDREQ 18:38 → ER 02-12 01:56 → UNDODISIN 02-13 15:38
PROVIDERS: ADMIT Hospitalist; ATTEND Hospitalist
DX: I13.0 Hypertensive heart and chronic kidney disease with heart failure and stage 1 through stage 4 chronic kidney disease, or unspecified chronic kidney disease (principal); I50.33 Acute on chronic diastolic (congestive) heart failure; J96.21 Acute and chronic respiratory failure with hypoxia; J44.1 Chronic obstructive pulmonary disease with (acute) exacerbation; N17.9 Acute kidney failure, unspecified; I25.10 Atherosclerotic heart disease of native coronary artery without angina pectoris; I27.20 Pulmonary hypertension, unspecified; I49.5 Sick sinus syndrome; E11.65 Type 2 diabetes mellitus with hyperglycemia; E11.22 Type 2 diabetes mellitus with diabetic chronic kidney disease; E03.9 Hypothyroidism, unspecified; D64.9 Anemia, unspecified; I48.0 Paroxysmal atrial fibrillation; N18.32 Chronic kidney disease, stage 3b; Z88.0 Allergy status to penicillin; Z88.2 Allergy status to sulfonamides; Z95.0 Presence of cardiac pacemaker; Z95.1 Presence of aortocoronary bypass graft; Z99.81 Dependence on supplemental oxygen; Z79.01 Long term (current) use of anticoagulants; Z79.899 Other long term (current) drug therapy; Z95.5 Presence of coronary angioplasty implant and graft
CPT/HCPCS: 36415; 71045; 80048; 80076; 82550; 82962; 83036; 83605; 83735; 83880; 84100; 84145; 84439; 84443; 84484; 84550; 85025; 85379; 93306; 93970; 94640; 99291; J1815; J1940; J2919; J7512; J7515; J7517; J8597

== ENCOUNTER 2024-06-02 16:28 | Inpatient (IN) | payer MEDICARE, MEDICAID ==
[~2024-06-02] VITALS: Ht 152.4 cm; Wt 63.5 kg
[~2024-06-02 16:28] MED LIST changes: +CEPH250C2 PO; -CITR473S PO; +COMP1EAC MC; -FERR-63 PO; +INSASP SUBCUT; +INSU100I22 SUBCUT; -MONT-46 PO; -NITR-87 PO; -PANT40TA51 PO; -PRED10TA PO; +PRED5TAB PO; -RIVA20TA PO; +TRAM50TA3 PO
[2024-06-02 17:28] LABS: BASOPHILS % 0.1 % (0.0-2.0); EOSINOPHILS % 0.1 % (0.0-5.0); HEMATOCRIT. 27.1 % (36.0-48.0); HEMOGLOBIN. 8.5 g/dL (12.0-16.0); LYMPHOCYTES % 8.3 % (20.0-50.0); MEAN CORPUSCULAR HEMOGLOBIN 27.9 pg (28.0-32.0); MEAN CORPUSCULAR HGB CONC 31.2 g/dL (31.0-37.0); MEAN CORPUSCULAR VOLUME 89.3 fL (81.0-99.0); MEAN PLATELET VOLUME 7.3 fl (7.4-10.4); MONOCYTES % 6.6 % (2.0-8.0); NEUTROPHILS % 84.9 % (40.0-76.0); PLATELET 243 x1000/uL (130-400); RED BLOOD CELL COUNT 3.03 mill/uL (4.2-5.4); RED CELL DISTRIBUTION WIDTH 20.1 % (11.6-14.6); WHITE BLOOD COUNT 7.2 x1000/uL (4.5-11.0)
[2024-06-02 17:34] LABS: CHLORIDE 113 mEq/L (98-107); POTASSIUM 4.4 mEq/L (3.5-5.1); SODIUM 141 mEq/L (136-145)
[2024-06-02 17:35] LABS: CALCIUM 8.4 mg/dL (8.7-10.4); CARBON DIOXIDE 22 mEq/L (21-32)
[2024-06-02 17:36] LABS: INR 1.9; PROTHROMBIN TIME 20.4 sec (9.6-11.0)
[2024-06-02 17:40] LABS: CREATININE 1.3 mg/dL (0.6-1.0); GLUCOSE 156 mg/dL (70-105); TROPONIN I HIGH SENSITIVITY 23 ng/L (3.0-34); UREA NITROGEN BLOOD 30 mg/dL (9-23)
[2024-06-02 17:42] LABS: ALANINE AMINOTRANSFERASE 17 IU/L (10-49); ALBUMIN 3.3 g/dL (3.2-4.8); ASPARTATE AMINOTRANSFERASE 22 IU/L (<34); BILIRUBIN DIRECT 0.4 mg/dL (<=3.0); BILIRUBIN TOTAL 0.9 mg/dL (0.1-1.0)
[2024-06-02] MEDS: CALCIUM CHLORIDE 1GM/10ML SYR IV ONE (17:57)
[2024-06-02] MEDS: CEFTRIAXONE 1GM/50ML 50 ML IV NR (18:28)
[2024-06-02] MEDS: DOXYCYCLINE 100MG/100ML 100 ML IV SCH (18:28)
[2024-06-02] MEDS ORDERED: DOCUSATE SODIUM 100MG CAPSULE PO PRN (21:00)
[2024-06-02] MEDS ORDERED: CLONIDINE 0.1MG TABLET PO PRN (21:00)
[2024-06-02] MEDS ORDERED: ACETAMINOPHEN 325MG TABLET PO PRN ×2 (21:00)
[2024-06-02] MEDS ORDERED: GUAIFENESIN 200MG/10ML SUGAR FREE UDC PO PRN (21:00)
[2024-06-02] MEDS ORDERED: NITROGLYCERIN 0.4MG TABLET SL SL PRN (21:00)
[2024-06-02] MEDS ORDERED: MAGNESIUM/ALUMINUM HYDROXIDE/SIMETHICONE 30ML UDC PO PRN (21:00)
[2024-06-02] MEDS ORDERED: ZOLPIDEM TARTRATE 5MG TABLET PO PRN (21:00)
[2024-06-02] MEDS ORDERED: IPRATROPIUM/ALBUTEROL 0.5-3(2.5)MG/3ML NEB NEB PRN (21:00)
[2024-06-02] MEDS ORDERED: ONDANSETRON HCL 4MG/2ML INJ IV PRN (21:00)
[2024-06-02] MEDS ORDERED: DEXTROSE 50% WATER 50ML SYRINGE IV PRN (21:00)
[2024-06-02] MEDS: INSULIN LISPRO 100 UNITS/ML SUBCUT SCH (21:00)
[2024-06-02 21:34] LABS: IRON 46 ug/dL (50-170)
[2024-06-02 21:37] LABS: TOTAL IRON BINDING CAPACITY 257 ug/dl (250-425)
[2024-06-02 21:40] LABS: T4 FREE 1.33 ng/dL (0.89-1.76); THYROID STIMULATING HORMONE 1.86 uIU/mL (0.55-4.78)
[2024-06-02] MEDS: BLOOD SUGAR DIAGNOSTIC STRIP TEST SCH (21:41)
[2024-06-02 21:43] LABS: FOLIC ACID (FOLATE) SERUM 14.65 ng/mL (>5.38); VITAMIN B12 SERUM 513 pg/mL (211-911)
[2024-06-02] MEDS: CYCLOSPORINE, MODIFIED 25MG CAPSULE PO SCH (21:48)
[2024-06-02] MEDS: MYCOPHENOLATE MOFETIL 250MG CAPSULE PO SCH (21:48)
[2024-06-02] MEDS: FAMOTIDINE 20MG TABLET PO SCH (21:48)
[2024-06-02] MEDS: FUROSEMIDE 40MG/4ML VIAL IVP SCH (21:48)
[2024-06-02] MEDS: INSULIN GLARGINE 100 UNITS/ML SUBCUT SCH (22:00)
[2024-06-02 22:37] LABS: BG CARBOXYHEMOGLOBIN 0.3 % (0.5-1.5); BG DEOXYHEMOGLOBIN 0.3 % (0.0-5.0); BG FRACTION INSPIRED OXYGEN 100; BG HCO3 ACT 18.6 mmol/L (21.0-28.0); BG METHEMOGLOBIN 0.3 % (0.5-1.5); BG OXYGEN SATURATION 99.7 % (94.0-98.0); BG OXYHEMOGLOBIN 99.1 % (94.0-98.0); BG PCO2 29.7 mmHg (32.0-45.0); BG PH 7.415 (7.350-7.450); BG PO2 302.4 mmHg (83.0-108.0); BG SAMPLE SITE LEFT BRACHIAL; BG TOTAL HEMOGLOBIN 10.1 g/dL (12.0-16.0); BG VENT MODE MASK - NRB
[2024-06-02 23:56] LABS: CREATINE KINASE MB FRACTION 0.9 ng/mL (0.5-3.6)
[2024-06-03 08:13] LABS: BASOPHILS % 0.2 % (0.0-2.0); EOSINOPHILS % 0.4 % (0.0-5.0); HEMATOCRIT. 29.6 % (36.0-48.0); HEMOGLOBIN. 9.2 g/dL (12.0-16.0); MEAN CORPUSCULAR HEMOGLOBIN 27.6 pg (28.0-32.0); MEAN CORPUSCULAR HGB CONC 31.3 g/dL (31.0-37.0); MEAN CORPUSCULAR VOLUME 88.1 fL (81.0-99.0); MEAN PLATELET VOLUME 7.3 fl (7.4-10.4); MONOCYTES % 11.4 % (2.0-8.0); PLATELET 234 x1000/uL (130-400); RED BLOOD CELL COUNT 3.35 mill/uL (4.2-5.4); RED CELL DISTRIBUTION WIDTH 20.2 % (11.6-14.6); WHITE BLOOD COUNT 6.6 x1000/uL (4.5-11.0)
[2024-06-03 08:23] LABS: CHLORIDE 111 mEq/L (98-107); POTASSIUM 4.2 mEq/L (3.5-5.1); SODIUM 141 mEq/L (136-145)
[2024-06-03 08:24] LABS: CALCIUM 9.1 mg/dL (8.7-10.4); CARBON DIOXIDE 24 mEq/L (21-32)
[2024-06-03 08:29] LABS: CREATININE 1.3 mg/dL (0.6-1.0); GLUCOSE 98 mg/dL (70-105); UREA NITROGEN BLOOD 31 mg/dL (9-23)
[2024-06-03 08:30] LABS: CREATINE KINASE MB FRACTION 0.8 ng/mL (0.5-3.6)
[2024-06-03 08:31] LABS: ALANINE AMINOTRANSFERASE 16 IU/L (10-49); ALBUMIN 3.4 g/dL (3.2-4.8); ASPARTATE AMINOTRANSFERASE 21 IU/L (<34); BILIRUBIN TOTAL 0.9 mg/dL (0.1-1.0); PHOSPHORUS 3.8 mg/dL (2.5-4.9); PROTEIN TOTAL 6.3 g/dL (6.0-8.3)
[2024-06-03] MEDS: ASPIRIN 81MG EC TABLET PO SCH (09:01)
[2024-06-03] MEDS: ENOXAPARIN 30MG/0.3ML SYR SUBCUT SCH (09:01)
[2024-06-03] MEDS: PREDNISONE 5MG TABLET PO SCH (09:02)
[2024-06-03] MEDS: AMIODARONE 200MG TABLET PO SCH (09:02)
[2024-06-03] MEDS: LEVOTHYROXINE SODIUM 100MCG TABLET PO SCH (09:02)
[2024-06-03 10:00] VITALS: BP 150/67; PULSE 73; RESP 18; TEMP 36.114; TEMP 36.14
[2024-06-03 11:31] VITALS: BP 117/63; PULSE 68; RESP 18; TEMP 36.44736; O2SAT 100
[2024-06-03] MEDS ORDERED: MOME13HF12 INH (12:20)
[2024-06-03] MEDS ORDERED: RIVA20TA MT (12:20)
[2024-06-03] MEDS: INFLUENZA VACCINE 05/PF 0.5 ML SYRINGE IM ONE (15:15)
[2024-06-03 15:28] VITALS: BP 144/63; PULSE 69; RESP 19; TEMP 36.78072; O2SAT 100
[2024-06-03] MEDS: FUROSEMIDE 40MG/4ML VIAL IVP SCH (17:38)
[2024-06-03 20:00] VITALS: BP 137/60; PULSE 69; RESP 18; TEMP 36.3918; O2SAT 100
[2024-06-03 20:01] LABS: CLARITY URINE TURBID (CLEAR); COLOR URINE YELLOW (YELLOW); GLUCOSE URINE NEGATIVE (NEGATIVE); KETONES URINE NEGATIVE (NEGATIVE); LEUKOCYTE ESTERASE URINE 3+ (NEGATIVE); NITRITE URINE NEGATIVE (NEGATIVE); OCCULT BLOOD URINE 2+ (NEGATIVE); PH URINE 5.5 (4.5-8.0); PROTEIN URINE 1+ (NEGATIVE); SPECIFIC GRAVITY URINE 1.007 (1.005-1.030); UROBILINOGEN URINE 0.2 E.U./dL (0.2-1.0)
[2024-06-03 20:06] LABS: *AMPHETAMINES SCREEN URINE NEGATIVE (NEGATIVE)
[2024-06-03 20:07] LABS: *BARBITURATES SCREEN URINE NEGATIVE (NEGATIVE); *BENZODIAZEPINES SCREEN URINE NEGATIVE (NEGATIVE); *COCAINE SCREEN URINE NEGATIVE (NEGATIVE); CANNABINOID URINE SCREEN NEGATIVE (NEGATIVE); ECSTASY MDMA SCREEN URINE NEGATIVE (NEGATIVE); METHADONE URINE SCREEN NEGATIVE (NEGATIVE); OPIATES URINE SCREEN NEGATIVE (NEGATIVE); PHENCYCLIDINE URINE SCREEN NEGATIVE (NEGATIVE)
[2024-06-03 20:23] LABS: BACTERIA URINE 1+; SQUAMOUS EPITHELIAL CELL URINE 1+ /lpf (RARE/1+); WBC URINE TNTC /hpf (0-2)
[2024-06-03] MEDS: ATORVASTATIN CALCIUM 40MG TABLET PO SCH (21:15)
[2024-06-04] VITALS: BP 130/65; PULSE 70; RESP 18; TEMP 36.55848; O2SAT 100
[2024-06-04 04:00] VITALS: BP 144/56; PULSE 70; RESP 18; TEMP 36.3918; O2SAT 99
[2024-06-04 08:00] VITALS: BP 124/67; PULSE 68; RESP 20; TEMP 36.28068; O2SAT 100
[2024-06-04 12:00] VITALS: BP 140/62; PULSE 68; RESP 18; TEMP 36.16956; O2SAT 98
[2024-06-04 16:00] VITALS: BP 141/66; PULSE 70; RESP 20; TEMP 36.33624; O2SAT 100
[2024-06-04 20:00] VITALS: BP 137/66; PULSE 70; RESP 18; TEMP 36.50292; O2SAT 99
[2024-06-05] VITALS: BP 129/67; PULSE 72; RESP 18; TEMP 36.3918; O2SAT 100
[2024-06-05 04:00] VITALS: BP 134/63; PULSE 71; RESP 18; TEMP 36.3918; O2SAT 100
[2024-06-05 07:19] LABS: HEMATOCRIT. 31.6 % (36.0-48.0); HEMOGLOBIN. 9.8 g/dL (12.0-16.0); MEAN CORPUSCULAR HEMOGLOBIN 27.4 pg (28.0-32.0); MEAN CORPUSCULAR HGB CONC 30.9 g/dL (31.0-37.0); MEAN CORPUSCULAR VOLUME 88.6 fL (81.0-99.0); PLATELET 241 x1000/uL (130-400); RED BLOOD CELL COUNT 3.56 mill/uL (4.2-5.4); RED CELL DISTRIBUTION WIDTH 19.8 % (11.6-14.6); WHITE BLOOD COUNT 5.4 x1000/uL (4.5-11.0)
[2024-06-05 07:24] LABS: CARBON DIOXIDE 25 mEq/L (21-32); CHLORIDE 106 mEq/L (98-107); POTASSIUM 3.9 mEq/L (3.5-5.1); SODIUM 140 mEq/L (136-145)
[2024-06-05 07:25] LABS: CALCIUM 8.9 mg/dL (8.7-10.4)
[2024-06-05 07:29] LABS: CREATININE 1.4 mg/dL (0.6-1.0); GLUCOSE 90 mg/dL (70-105)
[2024-06-05 07:30] LABS: DIFFERENTIAL COMMENT 1; UREA NITROGEN BLOOD 45 mg/dL (9-23)
[2024-06-05 07:32] LABS: PHOSPHORUS 4.2 mg/dL (2.5-4.9)
[2024-06-05 08:00] VITALS: BP 133/80; PULSE 81; RESP 18; TEMP 36.3918; O2SAT 100
[2024-06-05 11:11] VITALS: BP 133/80; PULSE 81; TEMP 97.5; O2SAT 100
[2024-06-05 11:45] LABS: PLATELET ESTIMATE NORMAL
[2024-06-05 11:48] LABS: ANISOCYTOSIS 1+
[2024-06-05 12:00] VITALS: BP 142/52; PULSE 59; RESP 20; TEMP 36.50292; O2SAT 98
== END 2024-06-05 13:15 | disposition home health service (06) | DRG 291 ==
LOC: ER 16:28 → EDBEDREQ 16:49 → 7WST 19:54 → EDBEDREQTM 20:04 → EDBEDREQ 20:04
PROVIDERS: ADMIT Internal Medicine; ATTEND Internal Medicine
DX: I13.0 Hypertensive heart and chronic kidney disease with heart failure and stage 1 through stage 4 chronic kidney disease, or unspecified chronic kidney disease (principal); I50.33 Acute on chronic diastolic (congestive) heart failure; J96.21 Acute and chronic respiratory failure with hypoxia; N17.9 Acute kidney failure, unspecified; J44.0 Chronic obstructive pulmonary disease with (acute) lower respiratory infection; F41.9 Anxiety disorder, unspecified; F32.A Depression, unspecified; E83.51 Hypocalcemia; I25.10 Atherosclerotic heart disease of native coronary artery without angina pectoris; I27.20 Pulmonary hypertension, unspecified; G89.29 Other chronic pain; I42.2 Other hypertrophic cardiomyopathy; I48.0 Paroxysmal atrial fibrillation; Z79.01 Long term (current) use of anticoagulants; Z79.4 Long term (current) use of insulin; Z86.16 Personal history of COVID-19; Z95.0 Presence of cardiac pacemaker; Z86.73 Personal history of transient ischemic attack (TIA), and cerebral infarction without residual deficits; Z99.81 Dependence on supplemental oxygen; Z87.01 Personal history of pneumonia (recurrent); Z98.61 Coronary angioplasty status; Z99.3 Dependence on wheelchair; Z79.899 Other long term (current) drug therapy; N18.32 Chronic kidney disease, stage 3b
CPT/HCPCS: 36415; 36600; 71045; 80048; 80053; 80076; 80305; 81003; 82375; 82550; 82553; 82607; 82746; 82805; 82962; 83036; 83540; 83550; 83605; 83735; 83880; 84100; 84145; 84439; 84443; 84484; 85025; 85379; 87077; 87186; 93005; 93970; 97161; 99291; J0696; J1650; J1815; J1940; J3490; J7512; J7515; J7517